=== PATIENT | female | born 1995 | race Caucasian/White ===

== ENCOUNTER 2020-11-08 08:05 | Inpatient (IN) ==
[2020-11-08] MEDS ORDERED: Lidocaine 1% 20 ML MDV INFILT PRN (08:38)
[2020-11-08] MEDS ORDERED: Naloxone 0.4 MG/ML INJ IVP PRN (08:38)
[2020-11-08] MEDS ORDERED: Metoclopramide 10 MG/2 ML VIAL IVP PRN (08:38)
[2020-11-08] MEDS ORDERED: *HR* Nalbuphine 10 MG/ML AMPUL IV PRN (08:38)
[2020-11-08] MEDS ORDERED: Azithromycin 500 MG in 0.9 % Sodium Chloride 250 ML IVPB ONE (08:38)
[2020-11-08] MEDS ORDERED: Ondansetron 4 MG/2 ML VIAL IVP PRN (08:38)
[2020-11-08] MEDS ORDERED: Famotidine 20 MG/2 ML VIAL IVP PRN (08:38)
[2020-11-08] MEDS ORDERED: Penicillin G Potassium 5,000,000 UNIT in 0.9 % Sodium Chloride Mini Bag 100 ML IVPB ONE (08:40)
[2020-11-08] MEDS ORDERED: Ringers Solution, Lactated 1,000 ML IVC SCH (08:45)
[2020-11-08 09:08] LABS: Basophils # 0.1 K/mcL (0.0-0.2); Basophils % 0.5 %; Eosinophils # 0.1 K/mcL (0.0-0.6); Eosinophils % 1.1 %; Hematocrit 34.2 % (35.3-44.9); Hemoglobin 10.7 g/dL (11.5-15.4); Immature Granulocytes % 1.1 % (0-4); Lymphocytes % 16.4 %; Mean Corpuscular HGB Conc 31.3 g/dL (31.6-35.5); Mean Corpuscular Hemoglobin 26.1 pg (28.0-33.3); Mean Corpuscular Volume 83.4 fL (83.0-100.0); Mean Platelet Volume 11.2 fL (9.4-12.4); Monocytes # 0.9 K/mcL (0.0-1.3); Monocytes % 7.6 %; Platelet Count 269 K/mcL (140-400); Red Cell Distribution Width 14.2 % (11.5-14.5); Segmented Neutrophils % 73.3 %; White Blood Count 12.3 K/mcL (4.3-11.1)
[2020-11-08] MEDS ORDERED: miSOPROStoL 25 MCG TABLET PO PRN (10:13)
[2020-11-08 12:30] LABS: Amphetamine Screen,Urine Negative ng/mL (Cutoff=1000); Barbiturate Screen,Urine Negative ng/mL (Cutoff=200); Benzodiazepines Screen,Urine Negative ng/mL (Cutoff=200); Cannabinoid Screen,Urine Negative ng/mL (Cutoff = 50); Cocaine Screen,Urine Negative ng/mL (Cutoff= 300); Opiate Screen,Urine Negative ng/mL (Cutoff=300); Phencyclidine Screen,Urine Negative ng/mL (Cutoff=25)
[2020-11-08] MEDS: Penicillin G Potassium 2,500,000 UNIT in 0.9 % Sodium Chloride 100 ML IVPB SCH ×2 (12:47→17:05)
[2020-11-08] MEDS ORDERED: Oxytocin 20 units/ LR 1000 mL 20 UNIT/1,000 ML BAG IVC SCH ×2 (14:45→21:42)
[2020-11-08] MEDS ORDERED: *HR* HYDROcodone/Acet 5/325 mg TABLET PO PRN (21:42)
[2020-11-08] MEDS ORDERED: Benzocaine/Menthol 56 GM AEROSOL SPRAY TP PRN (21:42)
[2020-11-08] MEDS ORDERED: Lanolin 7 G OINT...G. TP PRN (21:42)
[2020-11-08] MEDS ORDERED: Acetaminophen 325 MG TABLET PO PRN (21:42)
[2020-11-08] MEDS: Ibuprofen 600 MG TABLET PO PRN (22:08)
[2020-11-09 06:00] LABS: Basophils # 0.1 K/mcL (0.0-0.2); Basophils % 0.4 %; Eosinophils # 0.1 K/mcL (0.0-0.6); Eosinophils % 0.5 %; Hematocrit 32.7 % (35.3-44.9); Hemoglobin 10.3 g/dL (11.5-15.4); Immature Granulocytes % 0.9 % (0-4); Lymphocytes % 10.3 %; Mean Corpuscular HGB Conc 31.5 g/dL (31.6-35.5); Mean Corpuscular Hemoglobin 25.7 pg (28.0-33.3); Mean Corpuscular Volume 81.5 fL (83.0-100.0); Monocytes # 1.8 K/mcL (0.0-1.3); Monocytes % 9.5 %; Platelet Count 237 K/mcL (140-400); Red Blood Count 4.01 M/mcL (3.82-4.97); Red Cell Distribution Width 14.1 % (11.5-14.5); Segmented Neutrophils % 78.4 %
[2020-11-09 06:01] LABS: Neutrophils # 15.1 K/mcL (1.6-8.9); White Blood Count 19.2 K/mcL (4.3-11.1)
[2020-11-09] MEDS: Ibuprofen 600 MG TABLET PO PRN (07:45)
[2020-11-09] MEDS ORDERED: Prenatal Vit/FA 1 EACH TABLET PO SCH (09:00)
[2020-11-09 15:44] VITALS: BP 112/74
== END 2020-11-09 20:45 | disposition home or self-care (01) | DRG 768 ==
LOC: 1NENULAB 08:05 → 1NENUOBS 21:45
PROVIDERS: ADMIT Advanced Practice Midwife; ATTEND Advanced Practice Midwife